=== PATIENT | female | born 1965 | race Asian ===

== ENCOUNTER 2019-03-12 11:27 | Emergency (ER) | payer OTHER ==
[~2019-03-12] VITALS: Ht 162.6 cm; Wt 45.4 kg
--- NOTE | 2019-03-12 11:32 | NUR ---
ED Nurse Note: called patient. Not in waiting room.
[2019-03-12] MEDS ORDERED: NKM (11:42)
--- NOTE | 2019-03-12 11:49 | NUR ---
ED Nurse Note: pt walked in the ed c/o eft heel pain, pt stated she tried to avoid falling when getting out of the car and landed hard on the left heel, denies falling, no hear trauma. pt stated it happend 3-54 hours ago. ice applied. will continue to monitor.
--- NOTE | 2019-03-12 12:50 | Emergency Room Report ---
History of Present Illness General Chief Complaint: Lower Extremity Injury Source: Patient Present Illness HPI Patient is a 54-year-old female who presents after increased left lower extremity pain. Patient reports of increased pain to the left lateral portion of her foot. She reports having missed a step and subsequently striking the back of her heel forcefully on the ground. She reports of increased pain to the heel as well as to the lateral aspect of the left foot. She had increased pain with ambulation subsequently. She denies any other locations of pain. She denies any current medical conditions. She is noted to be allergic to aspirin which causes extreme swelling. Allergies: Coded Allergies: ASPIRIN (Verified Allergy, Unknown, 03/12/19) Patient History Past Medical History: see triage record Last Menstrual Period: menopause Reviewed Nursing Documentation: PMH: Agreed; PSxH: Agreed Nursing Documentation-PMH Past Medical History: No Stated History Review of Systems All Other Systems: negative except mentioned in HPI Physical Exam Vital Signs Date Time Temp Pulse Resp B/P (MAP) Pulse Ox O2 Delivery O2 Flow Rate FiO2 03/12/19 11:36 98.1 77 16 125/63 (83) 96 Room Air General Appearance: well appearing, no apparent distress, alert, GCS 15 Head: normocephalic, atraumatic ENT: hearing grossly normal, normal voice Neck: full range of motion, supple Respiratory: chest non-tender, lungs clear, no respiratory distress, speaking full sentences Musculoskeletal: no calf tenderness, tenderness - left foot lateral malleolus, slight, foot tenderness latera, heel tenderness Neurologic: normal inspection, alert, oriented x3, responsive, normal gait Psychiatric: mood/affect normal Skin: no rash Medical Decision Making ER Course Patient presented for left lower extremity pain. Differential diagnosis include was not limited to fracture, dislocation, contusion among others. Last Vital Signs Date Time Temp Pulse Resp B/P (MAP) Pulse Ox O2 Delivery O2 Flow Rate FiO2 03/12/19 11:36 98.1 77 16 125/63 (83) 96 Room Air Referrals: [facility],REFERRING (PCP) Sanchez Talbot MD Mar 12, 2019 12:50
--- NOTE | 2019-03-12 12:55 | NUR ---
ED Nurse Note: pt medicated as ordered, pt able to tolerate po meds. xray on bedside. will continue to monitor.
[2019-03-12] MEDS ORDERED: Acetaminophen 500mg (ES) tab ORAL ONE (13:00)
[2019-03-12] MEDS ORDERED: TYLENOL325 MG ORAL (13:18)
[2019-03-12] MEDS ORDERED: TRAMADOL HCL50 MG ORAL (13:18)
--- NOTE | 2019-03-12 13:19 | Diagnostic Imaging Report ---
Indication: Left foot pain Technique: 3 views left foot Comparison: none Findings: No acute fractures. No dislocations. Joint spaces are preserved. Impression: Negative This agrees with the preliminary interpretation provided overnight by [facility].
--- NOTE | 2019-03-12 13:19 | Diagnostic Imaging Report ---
Indication: Left ankle pain Technique: 3 views of the left ankle Comparison: none Findings: No acute fractures. No dislocations. The joint spaces are preserved Impression: Negative This agrees with the preliminary interpretation provided overnight by [facility].
--- NOTE | 2019-03-12 13:38 | NUR ---
ED Nurse Note: CRUTCHES PROVIDED. PT. TEACHING DONE BY RASHAD BROWN. RETURN DEMONSTRATION DONE BY THE PT.
[2019-03-12 14:40] VITALS: BP 125/63
--- NOTE | 2019-03-12 14:40 | NUR ---
ER DISCHARGE NOTE: Patient is cleared to be discharged per ERMD, pt is aox4, on room air, with stable vital signs. pt was given dc and prescription instructions, pt was able to verbalize understanding, pt id band removed without complications. pt is able to ambulate with steady gait. pt took all belongings.
== END 2019-03-12 14:40 | disposition home or self-care (01) ==
LOC: EMR 12:30
DX: M79.662 Pain in left lower leg (principal); Z88.6 Allergy status to analgesic agent
CPT/HCPCS: 99284